=== PATIENT | male | born 1940 | race Native Hawaiian/Other Pacific Islander ===

== ENCOUNTER 2017-05-01 07:55 | Outpatient (CLI) | payer OTHER ==
[~2017-05-01 07:55] MED LIST: CELEBREX100 MG PO; CLARITIN10 MG PO; CYCL10TA35 PO; NEXIUM40 M1 PO
== END 2017-05-01 09:00 | disposition home or self-care (01) ==
LOC: LAB 07:55
DX: C61 Malignant neoplasm of prostate (principal)
CPT/HCPCS: 36415; 84153

== ENCOUNTER 2017-09-13 16:50 | Emergency (ER) | payer OTHER ==
[~2017-09-13] VITALS: Ht 167.6 cm; Wt 72.1 kg
[2017-09-13 16:54] VITALS: TEMP 98
[2017-09-13 17:34] VITALS: BP 136/80
== END 2017-09-13 17:34 | disposition home or self-care (01) ==
LOC: ED 16:50
DX: K12.0 Recurrent oral aphthae (principal)
CPT/HCPCS: 99281

== ENCOUNTER 2017-10-09 07:35 | Day surgery (SDC) | payer OTHER | END 2017-10-09 09:20 | disposition home or self-care (01) | LOC: OR 07:35 | PROC: 08RJ3JZ Replacement of Right Lens with Synthetic Substitute, Percutaneous Approach (ICD-10-PCS; principal; 2017-10-09) | DX: H25.811 Combined forms of age-related cataract, right eye (principal) | CPT/HCPCS: 66984; V2632 ==

== ENCOUNTER 2017-11-27 07:50 | Day surgery (SDC) | payer OTHER | END 2017-11-27 10:47 | disposition home or self-care (01) | LOC: OR 07:50 | PROC: 08RK3JZ Replacement of Left Lens with Synthetic Substitute, Percutaneous Approach (ICD-10-PCS; principal; 2017-11-27) | DX: H25.812 Combined forms of age-related cataract, left eye (principal) | CPT/HCPCS: 66984; V2632 ==

== ENCOUNTER 2018-01-29 08:43 | Outpatient (CLI) | payer OTHER ==
[2018-01-29 09:10] LABS: PLATELET COUNT 208 K/uL (142-355)
[2018-01-29 09:21] LABS: POTASSIUM 4.3 mmol/L (3.6-5.2)
== END 2018-01-29 21:46 | disposition home or self-care (01) ==
LOC: RESP 08:43 → LABW 08:43
PROVIDERS: Plastic Surgery
DX: Z01.812 Encounter for preprocedural laboratory examination (principal); Z01.818 Encounter for other preprocedural examination; Z01.810 Encounter for preprocedural cardiovascular examination; Z01.811 Encounter for preprocedural respiratory examination
CPT/HCPCS: 36415; 80048; 85027; 93005

== ENCOUNTER 2018-05-02 07:09 | Outpatient (CLI) | payer OTHER | END 2018-05-02 23:28 | disposition home or self-care (01) | LOC: LABW 07:09 | DX: C61 Malignant neoplasm of prostate (principal); N52.1 Erectile dysfunction due to diseases classified elsewhere | CPT/HCPCS: 36415; 84153 ==

== ENCOUNTER 2018-11-02 08:14 | Outpatient (CLI) | payer OTHER | END 2018-11-02 20:48 | disposition home or self-care (01) | LOC: LABW 08:14 | DX: C61 Malignant neoplasm of prostate (principal) | CPT/HCPCS: 36415; 84153 ==

== ENCOUNTER 2019-04-05 11:28 | Emergency (ER) | payer OTHER ==
[~2019-04-05] VITALS: Ht 167.6 cm; Wt 68.3 kg
[2019-04-05 12:13] VITALS: TEMP 97.7
[2019-04-05 14:05] VITALS: BP 128/74
== END 2019-04-05 14:05 | disposition home or self-care (01) ==
LOC: ED 11:28
DX: S68.115A Complete traumatic metacarpophalangeal amputation of left ring finger, initial encounter (principal); W29.8XXA Contact with other powered hand tools and household machinery, initial encounter; Y92.89 Other specified places as the place of occurrence of the external cause
CPT/HCPCS: 90715; 99283; J0690

== ENCOUNTER 2019-04-17 08:09 | Outpatient (CLI) | payer OTHER | END 2019-04-17 23:39 | disposition home or self-care (01) | LOC: LABW 08:09 | DX: C61 Malignant neoplasm of prostate (principal); N52.1 Erectile dysfunction due to diseases classified elsewhere | CPT/HCPCS: 36415; 84153 ==

== ENCOUNTER 2019-10-25 12:21 | Outpatient (CLI) | payer OTHER | END 2019-10-25 19:42 | disposition home or self-care (01) | LOC: LABW 12:21 | DX: C61 Malignant neoplasm of prostate (principal) | CPT/HCPCS: 36415; 84153 ==

== ENCOUNTER 2020-05-04 09:36 | Outpatient (CLI) | payer OTHER | END 2020-05-04 21:07 | disposition home or self-care (01) | LOC: LABW 09:36 | DX: C61 Malignant neoplasm of prostate (principal); N52.1 Erectile dysfunction due to diseases classified elsewhere; N20.1 Calculus of ureter | CPT/HCPCS: 36415; 84153 ==

== ENCOUNTER 2020-08-25 08:04 | Emergency (ER) | payer OTHER ==
[~2020-08-25] VITALS: Ht 167.6 cm; Wt 70.3 kg
[2020-08-25 08:16] VITALS: BP 163/85; TEMP 99.5
== END 2020-08-25 09:11 | disposition home or self-care (01) ==
LOC: ED 08:04
DX: S81.851A Open bite, right lower leg, initial encounter (principal); S81.811A Laceration without foreign body, right lower leg, initial encounter; W54.0XXA Bitten by dog, initial encounter; Y92.89 Other specified places as the place of occurrence of the external cause
CPT/HCPCS: 90715; 96372; 99283

== ENCOUNTER 2020-09-11 10:55 | Outpatient (CLI) | payer OTHER | END 2020-09-11 19:11 | disposition home or self-care (01) | LOC: CT 10:55 | DX: R10.9 Unspecified abdominal pain (principal); K92.1 Melena ==

== ENCOUNTER 2021-03-22 10:24 | Outpatient (CLI) | payer OTHER | END 2021-03-22 19:54 | disposition home or self-care (01) | LOC: US 10:24 | PROVIDERS: ATTEND Nurse Practitioner Family | DX: R60.0 Localized edema (principal); M79.604 Pain in right leg ==

== ENCOUNTER 2021-03-23 14:32 | Outpatient (CLI) | payer OTHER | END 2021-03-23 19:28 | disposition home or self-care (01) | LOC: US 14:32 | PROVIDERS: ATTEND Nurse Practitioner Family | DX: R60.0 Localized edema (principal); M79.604 Pain in right leg ==

== ENCOUNTER 2021-04-21 09:47 | Outpatient (CLI) | payer OTHER | END 2021-04-21 22:20 | disposition home or self-care (01) | LOC: RESP 09:47 | PROVIDERS: ATTEND Nurse Practitioner Family | DX: I70.90 Unspecified atherosclerosis (principal); R06.02 Shortness of breath; I10 Essential (primary) hypertension; R60.0 Localized edema | CPT/HCPCS: 93005 ==

== ENCOUNTER 2021-06-04 08:05 | Outpatient (CLI) | payer OTHER | END 2021-06-04 22:34 | disposition home or self-care (01) | LOC: LABW 08:05 | PROVIDERS: ATTEND Internal Medicine Cardiovascular Disease | DX: M35.3 Polymyalgia rheumatica (principal) | CPT/HCPCS: 36415; 85652; 86140 ==

== ENCOUNTER 2022-05-19 09:44 | Outpatient (CLI) | payer OTHER | END 2022-05-19 19:05 | disposition home or self-care (01) | LOC: RAD 09:44 | PROVIDERS: ATTEND Nurse Practitioner Family | DX: J41.1 Mucopurulent chronic bronchitis (principal); R05.3 Chronic cough ==

== ENCOUNTER 2022-09-30 08:30 | Emergency (ER) | payer OTHER ==
[~2022-09-30] VITALS: Ht 167.6 cm; Wt 79.4 kg
[2022-09-30 08:35] VITALS: TEMP 97.1
[2022-09-30 10:15] VITALS: BP 156/78
== END 2022-09-30 10:15 | disposition home or self-care (01) ==
LOC: ED 08:30
DX: J20.9 Acute bronchitis, unspecified (principal)
CPT/HCPCS: 99283; J1100